=== PATIENT | male | born 1980 | race Caucasian/White ===

== ENCOUNTER 2017-08-16 15:31 | Emergency (ER) | payer OTHER ==
[~2017-08-16] VITALS: Ht 185.4 cm; Wt 125.6 kg
[2017-08-16 15:35] VITALS: BP 126/76
--- NOTE | 2017-08-16 15:45 | NUR ---
Patient to bed 12.
--- NOTE | 2017-08-16 15:50 | NUR ---
37 M BIB SELF FOR THE EVALUATION OF DIABETIC WOUND LOCATED ON SOLE OF RIGHT FOOTX APPROX 2 MONTHS BUT WORSENING THE PAST WK WITH REDNESS, WARMTH, AND PUS; SKIN INTACT; PT DENIES ANY FEVER OR CHILLS; PT DENIES ANY RECENT INJURY TO RIGHT FOOT; CMS INTACT TO BL LOWER EXTREMITITES; AOX4 WITH EVEN AND STEADY GAIT; RR ARE EVEN AND UNLABORED; PATIENT STATES PAIN OF 1/10 "DULL" NON RADIATING PAIN TO RIGHT FOOT AT THIS TIME; VSS; PATIENT POSITIONED FOR COMFORT; BED DOWN. ER MD MADE AWARE OF PT STATUS. ALL NEEDS MET AT THIS TIME. WILL CONTINUE TO MONITOR.
--- NOTE | 2017-08-16 16:04 | NUR ---
Dr. Calvo evaluating patient at bedside.
[2017-08-16 16:33] VITALS: BP 116/74
--- NOTE | 2017-08-16 16:33 | NUR ---
Patient discharged with v/s stable. Written and verbal after care instructions given and explained. Patient alert, oriented and verbalized understanding of instructions. Ambulatory with steady gait. All questions addressed prior to discharge. ID band removed. Patient advised to follow up with PMD. Rx of Bactrim, Keflex, Motrin, and [place] #5 given. Patient educated on indication of medication including possible reaction and side effects. Opportunity to ask questions provided and answered.
== END 2017-08-16 16:33 | disposition home or self-care (01) ==
LOC: MED 15:31
DX: L03.115 Cellulitis of right lower limb (principal); E11.9 Type 2 diabetes mellitus without complications
CPT/HCPCS: 82948; 99283

== ENCOUNTER 2018-03-04 11:43 | Emergency (ER) | payer OTHER ==
[~2018-03-04] VITALS: Ht 185.4 cm; Wt 132.4 kg
[2018-03-04 11:47] VITALS: BP 156/103
--- NOTE | 2018-03-04 11:50 | NUR ---
to er bed 5
[2018-03-04 12:00] VITALS: BP 156/103
--- NOTE | 2018-03-04 12:00 | NUR ---
37/M LEFT EYE PAIN X2 WEEKS. PATIENT WAS SEEN BY OPTOMOLOGIST AND WAS PRESCRIBED EYE DROPS FOR INTRAOCULAR PRESSURE. STARTING YESTERDAY, PATIENT STATES LEFT EYE PAIN WITH REDNESS NOTED. DENIES N/V/D; SKIN IS PINK/WARM/DRY; AAOX4 WITH EVEN AND STEADY GAIT; LUNGS CLEAR BL; HR EVEN AND REGULAR; PT DENIES ANY FEVER, CP, SOB, OR COUGH AT THIS TIME; PATIENT STATES PAIN OF 5/10 AT THIS TIME; HX DM. VSS; PATIENT POSITIONED FOR COMFORT; HOB ELEVATED; BEDRAILS UP X2; BED DOWN. ER MD MADE AWARE OF PT STATUS.
[2018-03-04] MEDS ORDERED: FLUORESCEIN OPTH STRIP 0.6 MG OP ONE (12:05)
[2018-03-04] MEDS ORDERED: TETRACAINE HCL/PF 0.5% OPTH 4 ML BTL OP ONE (12:05)
--- NOTE | 2018-03-04 12:07 | NUR ---
PATIENT SEEN BY DR. SAMAYOA AT BEDSIDE. NEW ORDERS RECEIVED. PER PATIENT, ALREADY RECEIVED THESE TESTS, PATIENT TO SIGNS AGAINST DR. SAMAYOA'S ADVICE HERE AT THE HOSPITAL AND TO GO STRAIGHT BACK TO THE OPTOMOLOGIST SEEING THE PATIENT.
--- NOTE | 2018-03-04 12:14 | NUR ---
Patient does not wish to proceed with medical care recommended by DR. SAMAYOA. Patient given information related to possible complications, up to and including , which could occur as a result of leaving hospital at this time. Patient verbalizes understanding of risks involved leaving against medical advice. Patient has signed AMA form. PRESCRIPTIONS AND RECOMMENDED FACILITY FOR EYE EXAMS GIVEN TO PATIENT WITH EDUCATION TEACHING, VERBALIZED UNDERSTANDING.
== END 2018-03-04 12:28 | disposition left against medical advice (07) ==
LOC: MED 11:43
DX: H20.9 Unspecified iridocyclitis (principal); H57.12 Ocular pain, left eye; E11.9 Type 2 diabetes mellitus without complications
CPT/HCPCS: 99283

== ENCOUNTER 2018-04-16 11:53 | Emergency (ER) | payer OTHER ==
[~2018-04-16] VITALS: Ht 185.4 cm; Wt 131.5 kg
[2018-04-16 12:02] VITALS: BP 120/80
[2018-04-16] MEDS ORDERED: VANCOMYCIN 1,000 MG in DEXTROSE 5% 250 ML IV ONE (12:30)
[2018-04-16] MEDS ORDERED: VANCOMYCIN 1,000 MG VIAL ONE (12:48)
[2018-04-16] MEDS ORDERED: cefTRIAXone 1,000 MG VIAL ONE (12:48)
[2018-04-16 13:12] LABS: BASOPHILS # (AUTO) 0.1 K/uL (0.00-0.22); BASOPHILS % (AUTO) 1.2 % (0.0-2.0); EOSINOPHILS # (AUTO) 0.1 K/uL (0-0.4); EOSINOPHILS % (AUTO) 1.1 % (0.0-4.0); HEMATOCRIT 41.7 % (36-52); HEMOGLOBIN 14.5 g/dL (12.0-18.0); LYMPHOCYTES # (AUTO) 2.4 K/uL (2.0-11.5); LYMPHOCYTES % (AUTO) 20.6 % (20.5-51.1); MEAN CORPUSCULAR HEMOGLOBIN 29 pg (27-31); MEAN CORPUSCULAR HGB CONC 35 g/dL (33-37); MEAN CORPUSCULAR VOLUME 84.9 fL (80-94); MONOCYTES # (AUTO) 0.7 K/uL (0.8-1.0); MONOCYTES % (AUTO) 5.8 % (1.7-9.3); NEUTROPHILS # (AUTO) 8.4 K/uL (1.8-7.7); NEUTROPHILS % (AUTO) 71.3 % (42.2-75.2); PLATELET COUNT (AUTO) 242 K/uL (140-450); RED BLOOD CELL COUNT(AUTO) 4.91 MIL/uL (4.20-6.10); RED CELL DISTRIBUTION WIDTH 12.7 % (11.6-13.7); WHITE BLOOD COUNT (AUTO) 11.8 K/uL (4.8-10.8)
[2018-04-16 13:29] LABS: ALBUMIN 3.9 g/dL (3.4-5.0); ANION GAP 13.9 (8-16); CARBON DIOXIDE 28.4 mmol/L (21-32); CREATININE 0.9 mg/dL (0.7-1.3); POTASSIUM 4.3 mmol/L (3.5-5.1); TOTAL BILIRUBIN 0.8 mg/dL (0.0-1.0)
[2018-04-16 15:09] VITALS: BP 123/75
== END 2018-04-16 15:10 | disposition home or self-care (01) ==
LOC: MED 11:53
DX: E11.621 Type 2 diabetes mellitus with foot ulcer (principal); L97.519 Non-pressure chronic ulcer of other part of right foot with unspecified severity; L03.115 Cellulitis of right lower limb
CPT/HCPCS: 36415; 73630; 80053; 83605; 85025; 85651; 86140; 87040; 96365; 96368; 99285; J0696; J3370; J7030; Q0092; 99284

== ENCOUNTER 2022-01-19 12:04 | Inpatient (IN) | payer OTHER ==
[~2022-01-19] VITALS: Ht 185.4 cm; Wt 143.8 kg
--- NOTE | 2022-01-19 14:00 | NUR ---
RECEIVED PATIENT TRANSFER FROM [facility] FOR CONTINUITY OF CARE. CC SWOLLEN ON LEFT SECOND TOE X2 DAYS. DX OSTEOMYELITIS. PATIENT IS A/A/O X4. RESPIRATORY EVEN AND UNLABORED, ON ROOM AIR, NO SIGN OF DISTRESS NOTED. LUNG SOUND CLEAR TO AUSCULTATE. S1 AND S2 NOTED, DENIES ANY CHEST PAIN. ABDOMEN ROUNDED, SOFT, NON DISTENDED. BOWEL SOUNDS ACTIVE TO ALL QUADRANTS. SKIN WARM, DRY, NON DIAPHORETIC. LEFT SECOND TOES SWOLLEN, REDNESS, DISCOLORATION. DM ULCER WOUND NOTED ON LEFT FOOT. IV ON LEFT AC 20G, INTACT AND PATENT, SALINE LOCK. MRSA COLLECTED. ORIENT TO ROOM AND UNIT ROUTINE. PLAN OF CARE DISCUSSED, PATIENT VERBALIZED UNDERSTANDING. CALL LIGHT WITHIN REACH. WILL CONTINUE TO MONITOR.
[2022-01-19 14:02] VITALS: BP 144/82
[2022-01-19] MEDS ORDERED: VANCOMYCIN PER PHARMACY MC PRN (14:05)
[2022-01-19] MEDS ORDERED: POTASSIUM CHLORIDE 10 MEQ TABER PO PRN (14:05)
[2022-01-19] MEDS ORDERED: ONDANSETRON 4 MG/2 ML VIAL IVP PRN ×2 (14:05→21:35)
[2022-01-19] MEDS ORDERED: ACETAMINOPHEN 325 MG TAB PO PRN (14:05)
[2022-01-19] MEDS ORDERED: MAGNESIUM OXIDE 400 MG TAB PO PRN (14:05)
[2022-01-19] MEDS ORDERED: KCL 20 MEQ/WATER INJ PREMIX 200 ML IV PRN (14:05)
[2022-01-19] MEDS ORDERED: MAG SULF 2000 MG/WATER PREMIX 50 ML IV PRN (14:05)
[2022-01-19] MEDS ORDERED: HYDROcodone/APAP 5/325 MG 1 TAB TAB PO PRN (14:05)
[2022-01-19] MEDS ORDERED: DEXTROSE 50% 50 ML SYR IVP PRN (14:10)
[2022-01-19] MEDS ORDERED: MORPHINE SULFATE 2 MG/ML SYR IVP PRN (14:35)
[2022-01-19 15:28] LABS: BASOPHILS % (AUTO) 0.5 % (0.0-2.0); EOSINOPHILS # (AUTO) 0.1 K/uL (0-0.4); EOSINOPHILS % (AUTO) 1.2 % (0.0-4.0); HEMATOCRIT 40.2 % (36-52); HEMOGLOBIN 13.7 g/dL (12.0-18.0); LYMPHOCYTES # (AUTO) 1.2 K/uL (2.0-11.5); LYMPHOCYTES % (AUTO) 15.3 % (20.5-51.1); MEAN CORPUSCULAR HEMOGLOBIN 29 pg (27-31); MEAN CORPUSCULAR HGB CONC 34 g/dL (33-37); MEAN CORPUSCULAR VOLUME 86.6 fL (80-94); MONOCYTES # (AUTO) 0.5 K/uL (0.8-1.0); MONOCYTES % (AUTO) 5.6 % (1.7-9.3); NEUTROPHILS # (AUTO) 6.2 K/uL (1.8-7.7); NEUTROPHILS % (AUTO) 77.4 % (42.2-75.2); PLATELET COUNT (AUTO) 232 K/uL (140-450); RED BLOOD CELL COUNT(AUTO) 4.64 MIL/uL (4.20-6.10); RED CELL DISTRIBUTION WIDTH 12.8 % (11.6-13.7); WHITE BLOOD COUNT (AUTO) 8.1 K/uL (4.8-10.8)
[2022-01-19 15:29] LABS: ANION GAP 13.7 (8-16); CARBON DIOXIDE 27.3 mmol/L (21-32); CREATININE 0.8 mg/dL (0.6-1.3)
[2022-01-19] MEDS ORDERED: NACL 0.9% 1,000 ML IV SCH (15:40)
[2022-01-19] MEDS: INSULIN LISPRO SLIDING SCALE 100 UNITS/ML VIAL SUBQ PRN (16:34)
[2022-01-19] MEDS: BLOOD GLUCOSE MONITORING 1 DEV DEV FS SCH ×2 (16:34→22:56)
--- NOTE | 2022-01-19 16:34 | NUR ---
BS CHECK 285, 6 UNITS OF INSULIN GIVEN TO COVER. PATIENT TOLERATED WELL. NO SIGN OF DISTRESS NOTED. CALL LIGHT WITHIN REACH. WILL CONTINUE TO MONITOR.
[2022-01-19] MEDS: NACL 0.9% IV SCH (17:02)
[2022-01-19] MEDS: VANCOMYCIN IV SCH (17:02)
--- NOTE | 2022-01-19 18:45 | NUR ---
DR TESFAYE AT BEDSIDE TO EXPLAIN THE BENEFIT AND RISK REGARDING THE SURGERY. PATIENT VERBALIZED UNDERSTANDING. PATIENT SIGNED THE CONSENT, BEDSIDE NURSE SIGNED WITNESS.
--- NOTE | 2022-01-19 19:16 | NUR ---
ENDORSED PATIENT TO WELL SURVEYING ENGINEER NURSE FOR CONTINUITY OF CARE. PATIENT IS STABLE.
--- NOTE | 2022-01-19 19:30 | NUR ---
RECEIVED BEDSIDE REPORT FROM DAY SHIFT RN FOR CONTINUITY OF CARE. PT IS AWAKE. PT IS NOT IN ANY DISTRESS. BREATHING RHYTHMIC AND UNLABORED. COMMUNICATION BOARD UPDATED. IVF RUNNING PER MD ORDER. CALL LIGHT WITHIN REACH. ALL SAFETY MEASURES TAKEN. WILL CONTINUE TO MONITOR THE PT.
[2022-01-19 20:00] VITALS: BP 129/75
--- NOTE | 2022-01-19 20:00 | NUR ---
PT IS BACK FROM SURGERY. PT IS DOING WELL WITH NO COMPLAINS. DRESSING ON LEFT FOOT. DRY AND INTACT. PT IS NOT IN ANY PAIN. NO COMPLAINS. ALL SAFETY MEASURES TAKEN. WILL CONTINUE TO MONITOR THE PT. Addendum: 01/19/22 at 2300 by Mark Arias RN PT CAME BACK FROM SURGERY AT 2200.
[2022-01-19] MEDS ORDERED: fentaNYL citrate 0.05 MG/ML VIAL ONE (20:25)
[2022-01-19] MEDS ORDERED: SEVOFLURANE 250 ML BTL INH ONE (20:25)
[2022-01-19] MEDS ORDERED: PROPOFOL 200 MG/20 ML VIAL IV ONE (20:25)
[2022-01-19] MEDS ORDERED: BUPIVACAINE-MPF 0.25% 30 ML VIAL INJ ONE (20:31)
[2022-01-19] MEDS ORDERED: LIDOCAINE 1% 500 MG/50 ML VIAL ONE (20:31)
[2022-01-19] MEDS ORDERED: DEXAMETHASONE 4 MG/ML VIAL ONE (20:59)
[2022-01-19] MEDS ORDERED: ONDANSETRON 4 MG/2 ML VIAL ONE (20:59)
[2022-01-19] MEDS ORDERED: MEPERIDINE 50 MG/ML SYR ONE (21:00)
--- NOTE | 2022-01-19 21:00 | NUR ---
PT LEFT TO SURGERY FOR LEFT FOOT 2ND DIGIT PARTIAL AMPUTATION. PT IS STABLE.
[2022-01-19] MEDS ORDERED: diphenhydrAMINE 50 MG/ML VIAL IVP PRN (21:35)
[2022-01-19] MEDS: NACL 0.9% 1,000 ML IV SCH (21:35)
[2022-01-19] MEDS ORDERED: HYDROmorphone 1 MG/ML AMP IVP PRN (21:35)
[2022-01-19] MEDS ORDERED: MEPERIDINE 25 MG/ML SYR IVP PRN (21:35)
[2022-01-19] MEDS ORDERED: BLOOD GLUCOSE MONITORING 1 DEV DEV FS SCH (21:35)
[2022-01-19] MEDS: CEFEPIME 1,000 MG in DEXTROSE 5% 50 ML IV SCH (22:12)
[2022-01-20] MEDS: NACL 0.9% IV SCH ×2 (00:12→09:36)
[2022-01-20] MEDS: VANCOMYCIN IV SCH ×2 (00:12→09:36)
--- NOTE | 2022-01-20 00:15 | NUR ---
ALL DUE MEDS GIVEN. NO ADVERSE REACTION NOTED. WILL CONTINUE TO MONITOR THE PT.
--- NOTE | 2022-01-20 02:20 | NUR ---
PT IS AWAKE IN BED. PT IS NOT IN ANY DISTRESS. BREATHING RHYTHMIC AND UNLABORED. IVF RUNNING PER MD ORDER. CALL LIGHT WITHIN REACH. ALL SAFETY MEASURES TAKEN. WILL CONTINUE TO MONITOR THE PT.
[2022-01-20 04:00] VITALS: BP 148/91
--- NOTE | 2022-01-20 05:43 | NUR ---
PT IS SLEEPING IN BED COMFORTABLY. PT IS NOT IN ANY DISTRESS. BREATHING RHYTHMIC AND UNLABORED. IVF RUNNING PER MD ORDER. CALL LIGHT WITHIN REACH. ALL SAFETY MEASURES TAKEN. WILL CONTINUE TO MONITOR THE PT.
[2022-01-20] MEDS: NACL 0.9% 1,000 ML IV SCH (05:55)
[2022-01-20] MEDS: INSULIN LISPRO SLIDING SCALE 100 UNITS/ML VIAL SUBQ PRN ×2 (06:31→11:57)
[2022-01-20] MEDS: BLOOD GLUCOSE MONITORING 1 DEV DEV FS SCH ×2 (06:36→11:54)
[2022-01-20 06:48] LABS: BASOPHILS % (AUTO) 0.2 % (0.0-2.0); EOSINOPHILS % (AUTO) 0.1 % (0.0-4.0); HEMATOCRIT 39.7 % (36-52); HEMOGLOBIN 13.4 g/dL (12.0-18.0); LYMPHOCYTES # (AUTO) 0.5 K/uL (2.0-11.5); LYMPHOCYTES % (AUTO) 6.5 % (20.5-51.1); MEAN CORPUSCULAR HEMOGLOBIN 30 pg (27-31); MEAN CORPUSCULAR HGB CONC 34 g/dL (33-37); MEAN CORPUSCULAR VOLUME 87.9 fL (80-94); MONOCYTES # (AUTO) 0.2 K/uL (0.8-1.0); MONOCYTES % (AUTO) 2.4 % (1.7-9.3); NEUTROPHILS # (AUTO) 7.5 K/uL (1.8-7.7); NEUTROPHILS % (AUTO) 90.8 % (42.2-75.2); PLATELET COUNT (AUTO) 225 K/uL (140-450); RED BLOOD CELL COUNT(AUTO) 4.52 MIL/uL (4.20-6.10); RED CELL DISTRIBUTION WIDTH 13.2 % (11.6-13.7); WHITE BLOOD COUNT (AUTO) 8.3 K/uL (4.8-10.8)
--- NOTE | 2022-01-20 07:17 | NUR ---
ENDORSED PT TO DAY SHIFT RN FOR CONTINUITY OF CARE. PT IS STABLE.
[2022-01-20 07:18] LABS: ALBUMIN 3.4 g/dL (3.4-5.0); ANION GAP 18.4 (8-16); CARBON DIOXIDE 23.1 mmol/L (21-32); POTASSIUM 4.5 mmol/L (3.5-5.1); TOTAL BILIRUBIN 0.4 mg/dL (0.0-1.0)
--- NOTE | 2022-01-20 07:36 | NUR ---
REPORT RECEIVED FROM ENROLLMENT SPECIALIST RN. PT IN STABLE CONDITION.
[2022-01-20 08:00] VITALS: BP 136/95
--- NOTE | 2022-01-20 08:13 | NUR ---
PATIENT HAS BEEN SCREENED AND CATEGORIZED HIGH NUTRITION RISK. PATIENT WILL BE SEEN WITHIN 1-2 DAYS OF ADMISSION. / RECEIVED REFERRAL FOR UNHEALED WOUNDS LYDIA [address]
--- NOTE | 2022-01-20 08:19 | NUR ---
WOUND CONSULT NOT DONE TO LEFT FOOT. PT. SEEN AND TREATED BY DR. TESFAYE.
[2022-01-20] MEDS: CEFEPIME 1,000 MG in DEXTROSE 5% 50 ML IV SCH (08:29)
[2022-01-20] MEDS ORDERED: INSULIN LANTUS 100 UNITS/ML 10 ML VIAL SUBQ SCH (09:00)
[2022-01-20] MEDS ORDERED: METF-1022 PO (11:13)
[2022-01-20] MEDS ORDERED: ACET-1182 PO (11:13)
[2022-01-20] MEDS ORDERED: LINE600T10 PO (11:25)
[2022-01-20] MEDS ORDERED: LEVO750T51 PO (11:25)
[2022-01-20 12:00] VITALS: BP 124/92
--- NOTE | 2022-01-20 12:32 | NUR ---
DC PLANNING: THE PATIENT ADMITTED WITH C/O FOOT PAIN, H/O DM WITH PRIOR AMPUTATION OF THE THIRD LEFT TOE. TAKEN TO OR BY DR TESFAYE FOR PARTIAL AMPUTATION OF THE LEFT SECOND TOE. CM MET WITH THE PATIENT AT BEDSIDE, HIS CURRENT ADDRESS IS [facility], [id number], NEW PHONE NUMBER [phone]. THE PATIENT LIVES IN A TOWNHOUSE WITH THREE LEVELS WITH HIS AND DAUGHTER. NO DME OF H/O HOME HEALTH. CM DISCUSSED DIABETIC MANAGEMENT AT LENGTH WITH THE PATIENT AND GAVE RESOURCE OF THE [employer] WEBSITE. HOME HEALTH ORDERED FOR DIABETIC COMPLIANCE AND WOUND CARE WHICH WILL START AFTER THE PATIENT SEES DR TESFAYE. NURSING SCHEDULED A F/U APPOINTMENT FOR THE PATIENT WITH DR TESFAYE AND A PRESCRIPTION WAS GIVEN FOR GLUCOMETER AND SUPPLIES THE PATIENT DOESN'T HAVE ONE. HE HAS BEEN DIABETIC FOR 10 YEARS AND HIS MOTHER FROM COMPLICATIONS OF DM. PATIENT ACCEPTED ON SERVICE WITH [facility], PHONE NUMBER [phone]. PAULO AT [facility] NOTIFIED OF ACCEPTANCE AND WILL GIVE AUTHORIZATION TO THEM. [facility] WILL FOLLOW. Addendum: 01/20/22 at 1240 by Evelin James CM Amended: Links added.
== END 2022-01-20 13:15 | disposition home health service (06) | DRG 314 ==
LOC: MTU 13:58
PROVIDERS: ADMIT Internal Medicine; ATTEND Internal Medicine
PROC: 0JBR0ZZ Excision of Left Foot Subcutaneous Tissue and Fascia, Open Approach (ICD-10-PCS; 2022-01-19)
PROC: 0QBR0ZX Excision of Left Toe Phalanx, Open Approach, Diagnostic (ICD-10-PCS; 2022-01-19)
PROC: 0Y6S0Z3 Detachment at Left 2nd Toe, Low, Open Approach (ICD-10-PCS; principal; 2022-01-19 20:00)
DX: E11.69 Type 2 diabetes mellitus with other specified complication (principal); L03.116 Cellulitis of left lower limb; M86.8X7 Other osteomyelitis, ankle and foot; L97.526 Non-pressure chronic ulcer of other part of left foot with bone involvement without evidence of necrosis; L97.522 Non-pressure chronic ulcer of other part of left foot with fat layer exposed; E11.42 Type 2 diabetes mellitus with diabetic polyneuropathy; E11.621 Type 2 diabetes mellitus with foot ulcer; E66.01 Morbid (severe) obesity due to excess calories; Z89.421 Acquired absence of other right toe(s); Z68.41 Body mass index [BMI] 40.0-44.9, adult; Z89.422 Acquired absence of other left toe(s)
CPT/HCPCS: 36415; 71045; 73630; 80048; 80053; 82948; 83036; 83735; 85025; 87070; 87075; 87081; 87205; 93005; J0692; J1100; J1815; J2001; J2175; J2405; J2704; J3010; J3370; J3490; J7030; J7060

== ENCOUNTER 2022-07-08 23:33 | Emergency (ER) | payer OTHER ==
[~2022-07-08] VITALS: Ht 185.4 cm; Wt 150.1 kg
[~2022-07-08 23:33] MED LIST: ACET-1182 PO; LEVO750T75 PO; LINE600T10 PO; METF-1253 PO
[2022-07-08 23:44] VITALS: BP 147/88
[2022-07-09] MEDS ORDERED: NACL 0.9% 2,500 ML IV ONE (02:45)
[2022-07-09] MEDS ORDERED: PIPERACILLIN/TAZOBACTAM 3.375 GM in DEXTROSE 5% 50 ML IV ONE (02:45)
[2022-07-09] MEDS ORDERED: VANCOMYCIN 1,000 MG in DEXTROSE 5% 250 ML IV ONE (02:45)
[2022-07-09 03:23] LABS: BASOPHILS # (AUTO) 0.1 K/uL (0.00-0.22); BASOPHILS % (AUTO) 0.8 % (0.0-2.0); EOSINOPHILS # (AUTO) 0.2 K/uL (0-0.4); EOSINOPHILS % (AUTO) 2.4 % (0.0-4.0); HEMATOCRIT 40.1 % (36-52); HEMOGLOBIN 13.4 g/dL (12.0-18.0); LYMPHOCYTES # (AUTO) 1.8 K/uL (2.0-11.5); LYMPHOCYTES % (AUTO) 17.7 % (20.5-51.1); MEAN CORPUSCULAR HEMOGLOBIN 29 pg (27-31); MEAN CORPUSCULAR HGB CONC 33 g/dL (33-37); MEAN CORPUSCULAR VOLUME 87.1 fL (80-94); MONOCYTES # (AUTO) 0.6 K/uL (0.8-1.0); MONOCYTES % (AUTO) 6.1 % (1.7-9.3); NEUTROPHILS # (AUTO) 7.3 K/uL (1.8-7.7); PLATELET COUNT (AUTO) 237 K/uL (140-450); RED CELL DISTRIBUTION WIDTH 13.8 % (11.6-13.7)
--- NOTE | 2022-07-09 03:25 | NUR ---
RECEIVED IN BED 7 WITH RT FOOT PAIN. PT REPORTS BLISTER TO RT FOOT WITH H/O DIABETES MEDHX- DM NKA
[2022-07-09] MEDS ORDERED: VANCOMYCIN 1,000 MG VIAL ONE (03:37)
[2022-07-09] MEDS ORDERED: PIPERACILLIN/TAZOBACTAM 3.375 GM VIAL IV ONE (03:38)
[2022-07-09 03:39] LABS: ALBUMIN 3.7 g/dL (3.4-5.0); ANION GAP 12.2 (8-16); CARBON DIOXIDE 28.7 mmol/L (21-32); POTASSIUM 3.9 mmol/L (3.5-5.1); TOTAL BILIRUBIN 0.4 mg/dL (0.0-1.0)
--- NOTE | 2022-07-09 05:00 | NUR ---
RIGHT FOOT DRESSED, BACITRACIN WAS APPLIED
[2022-07-09] MEDS ORDERED: CEPH-588 PO (05:22)
== END 2022-07-09 05:30 | disposition home or self-care (01) ==
LOC: MED 23:33
DX: S90.822A Blister (nonthermal), left foot, initial encounter (principal); I10 Essential (primary) hypertension; E11.9 Type 2 diabetes mellitus without complications; Z79.4 Long term (current) use of insulin; Z79.899 Other long term (current) drug therapy; Z98.890 Other specified postprocedural states; X58.XXXA Exposure to other specified factors, initial encounter; Y93.89 Activity, other specified; Y92.89 Other specified places as the place of occurrence of the external cause; Y99.8 Other external cause status
CPT/HCPCS: 36415; 73630; 80053; 82948; 83605; 85025; 87040; 96365; 96367; 99284; J2543; J3370; J7030

== ENCOUNTER 2022-09-27 09:01 | Emergency (ER) | payer OTHER ==
[~2022-09-27] VITALS: Ht 185.4 cm; Wt 150.1 kg
[~2022-09-27 09:01] MED LIST changes: +CEPH-588 PO
[2022-09-27 09:19] VITALS: BP 139/89
[2022-09-27 10:45] VITALS: BP 139/89
--- NOTE | 2022-09-27 10:45 | NUR ---
PATIENT ELOPED FROM FACILITY. DISCHARGE INSTRUCTIONS NOT GIVEN TO PATIENT. DR. FRIAS NOTIFIED.
== END 2022-09-27 10:45 | disposition left against medical advice (07) ==
LOC: MED 09:01
DX: E11.621 Type 2 diabetes mellitus with foot ulcer (principal)
CPT/HCPCS: 73630; 99283

== ENCOUNTER 2022-10-10 13:15 | Emergency (ER) | payer OTHER ==
[~2022-10-10] VITALS: Ht 182.9 cm; Wt 149.7 kg
[2022-10-10 13:18] VITALS: BP 149/100
--- NOTE | 2022-10-10 13:50 | NUR ---
42YO MALE PT C/O THROBBING 5/10 R EYE PAIN X5DAYS. STATES SUDDEN ONSET ALONG WITH CLOUDY VISION. EYE PRESENTS RED, NO PUS OR DRAINAGE NOTED. PERRLA . STATES APPLYING OTC EYE DROPS WHICH WORSENED SYMPTOMS. NOTES S/S 5 YEARS AGO THAT SELF RELIEVED. PT AAOX4, LIGHTS DIMMED PER COMFORT. HX:DIABETES, HTN NKA
--- NOTE | 2022-10-10 13:57 | NUR ---
DAMION CALLAWAY AT BEDSIDE FOR EVALUATION
[2022-10-10] MEDS ORDERED: TETRACAINE HCL/PF 0.5% OPTH 4 ML BTL OP ONE (14:05)
[2022-10-10] MEDS ORDERED: FLUORESCEIN OPTH STRIP 1 MG OP ONE (14:05)
[2022-10-10] MEDS ORDERED: IBUP-2213 PO (14:38)
[2022-10-10] MEDS ORDERED: ERYT5OIN51 OP (14:38)
--- NOTE | 2022-10-10 14:50 | NUR ---
Patient discharged with v/s stable. Written and verbal after care instructions FOR BACTERIAL CONJUCTIVITIS given and explained. Patient alert, oriented and verbalized understanding of instructions. Ambulatory with steady gait. All questions addressed prior to discharge. ID band removed. Patient advised to follow up with PMD. Rx of IBUPROFEN AND ERTHROMYCIN given. Opportunity to ask questions provided and answered.
--- NOTE | 2022-10-10 15:08 | NUR ---
The patient's care was reviewed and supervised by [facility], RN.
== END 2022-10-10 14:50 | disposition home or self-care (01) ==
LOC: MED 13:15
DX: H10.9 Unspecified conjunctivitis (principal); B96.89 Other specified bacterial agents as the cause of diseases classified elsewhere; E11.9 Type 2 diabetes mellitus without complications; I10 Essential (primary) hypertension; Z79.899 Other long term (current) drug therapy; Z79.84 Long term (current) use of oral hypoglycemic drugs
CPT/HCPCS: 99283

== ENCOUNTER 2022-11-07 11:06 | Emergency (ER) | payer OTHER ==
[~2022-11-07] VITALS: Ht 185.4 cm; Wt 150.1 kg
[~2022-11-07 11:06] MED LIST changes: +ERYT5OIN51 OP; +IBUP-2213 PO
[2022-11-07 11:18] VITALS: BP 124/81
--- NOTE | 2022-11-07 11:30 | NUR ---
42/M PRESENTS TO ED WITH C/O LEFT EAR PAIN X3 WEEKS, STATES HE WAS SEEN BY HIS PCP ON SUNDAY AND GIVEN RX OF ABX WITH NO RELIEF. REPORTS EPISODES OF DIZZINESS AND ISSUES WITH BALANCE, DENIES FEVERS, CHILLS, DENIES DISHCHARGE OF EARS.
[2022-11-07] MEDS ORDERED: SUD30 PO (12:01)
[2022-11-07] MEDS ORDERED: MECL-303 PO (12:01)
[2022-11-07 12:10] VITALS: BP 112/62
--- NOTE | 2022-11-07 12:10 | NUR ---
Patient discharged with v/s stable. Written and verbal after care instructions ABOUT DIZZINESS given and explained. Patient alert, oriented and verbalized understanding of instructions. Ambulatory with steady gait. All questions addressed prior to discharge. ID band removed. Patient advised to follow up with PMD. Rx of ANTIVERT AND SUDAFED given. Patient educated on indication of medication including possible reaction and side effects. Opportunity to ask questions provided and answered.
== END 2022-11-07 12:10 | disposition home or self-care (01) ==
LOC: MED 11:06
DX: H65.93 Unspecified nonsuppurative otitis media, bilateral (principal); R42 Dizziness and giddiness; R11.2 Nausea with vomiting, unspecified; E11.9 Type 2 diabetes mellitus without complications; I10 Essential (primary) hypertension; Z79.899 Other long term (current) drug therapy; Z79.84 Long term (current) use of oral hypoglycemic drugs
CPT/HCPCS: 99282

== ENCOUNTER 2022-11-20 18:08 | Emergency (ER) | payer OTHER ==
[~2022-11-20] VITALS: Ht 185.4 cm; Wt 149.7 kg
[~2022-11-20 18:08] MED LIST changes: +MECL-303 PO; +SUD30 PO
[2022-11-20 18:22] VITALS: BP 124/70
--- NOTE | 2022-11-20 20:18 | NUR ---
PT CALLED BY DAMION STANTON WITH NO ANSWER.
--- NOTE | 2022-11-20 20:38 | NUR ---
PT CALLED BY DAMION STANTON WITH NO ANSWER.
--- NOTE | 2022-11-20 20:50 | NUR ---
PT CALLED BY DAMION STANTON WITH NO ANSWER. PT LWBS
== END 2022-11-20 20:50 | disposition left against medical advice (07) ==
LOC: MED 18:08
DX: R42 Dizziness and giddiness (principal); Z53.21 Procedure and treatment not carried out due to patient leaving prior to being seen by health care provider

== ENCOUNTER 2023-01-17 17:21 | Inpatient (IN) | payer OTHER ==
[~2023-01-17] VITALS: Ht 182.9 cm; Wt 151.0 kg
[2023-01-17] MEDS: NACL 0.9% 1,000 ML IV SCH (00:34)
[2023-01-17 17:34] VITALS: BP 142/92
--- NOTE | 2023-01-17 17:45 | NUR ---
PT AMB TO BED 6
[2023-01-17] MEDS ORDERED: NACL 0.9% 1,000 ML IV SCH (17:55)
--- NOTE | 2023-01-17 17:55 | NUR ---
42YO MALE PT C/O STEVIE DIABETIC FOOT ULCERS. REPORTS BEING SENT BY PCP D/T NEW ULCER ON R FOOT X4DAYS. STEVIE ULCERS NOTED. STATES L FOOT INITIAL ONSET [id number] AND CURRENTLY ON ANTIBIOTICS. DENIES PAIN, N/V/D, FEVER OR CHILLS. 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 HX: DIABETES, HTN, HLD NKA
--- NOTE | 2023-01-17 17:57 | NUR ---
XRAY AT BEDSIDE
[2023-01-17] MEDS ORDERED: VANCOMYCIN 1,000 MG in DEXTROSE 5% 250 ML IV ONE (18:10)
[2023-01-17] MEDS ORDERED: PIPERACILLIN/TAZOBACTAM 3.375 GM in DEXTROSE 5% 50 ML IV ONE (18:10)
[2023-01-17 18:16] LABS: BASOPHILS # (AUTO) 0.1 K/uL (0.00-0.22); EOSINOPHILS # (AUTO) 0.5 K/uL (0-0.4); EOSINOPHILS % (AUTO) 4.9 % (0.0-4.0); HEMATOCRIT 38.7 % (36-52); HEMOGLOBIN 12.8 g/dL (12.0-18.0); MEAN CORPUSCULAR HEMOGLOBIN 29 pg (27-31); MEAN CORPUSCULAR HGB CONC 33 g/dL (33-37); MEAN CORPUSCULAR VOLUME 86.6 fL (80-94); MONOCYTES # (AUTO) 0.7 K/uL (0.8-1.0); MONOCYTES % (AUTO) 7.7 % (1.7-9.3); NEUTROPHILS % (AUTO) 64.4 % (42.2-75.2); PLATELET COUNT (AUTO) 399 K/uL (140-450); RED BLOOD CELL COUNT(AUTO) 4.47 MIL/uL (4.20-6.10); RED CELL DISTRIBUTION WIDTH 13.3 % (11.6-13.7); WHITE BLOOD COUNT (AUTO) 9.2 K/uL (4.8-10.8)
--- NOTE | 2023-01-17 18:30 | NUR ---
aerobic cultures x2 collected and walked to lab.
[2023-01-17 18:32] LABS: ALBUMIN 3.5 g/dL (3.4-5.0); CARBON DIOXIDE 31.9 mmol/L (21-32); CREATININE 1.1 mg/dL (0.6-1.3); POTASSIUM 3.9 mmol/L (3.5-5.1); TOTAL BILIRUBIN 0.2 mg/dL (0.0-1.0)
[2023-01-17] MEDS ORDERED: cefTRIAXone 1,000 MG VIAL ONE (18:34)
[2023-01-17] MEDS ORDERED: PIPERACILLIN/TAZOBACTAM 3.375 GM VIAL IV ONE (18:37)
[2023-01-17] MEDS ORDERED: METF-337 PO (19:06)
[2023-01-17] MEDS ORDERED: LISI40TA8 PO (19:06)
[2023-01-17] MEDS ORDERED: ATOR10TA51 PO (19:06)
[2023-01-17] MEDS ORDERED: GLIP10TA12 PO (19:06)
[2023-01-17] MEDS ORDERED: ERGO-30 PO (19:06)
--- NOTE | 2023-01-17 19:32 | NUR ---
REPORT GIVEN TO SANG RN. TRANSFER OF CARE AT THIS TIME
[2023-01-17] MEDS ORDERED: VANCOMYCIN 1,000 MG VIAL ONE ×2 (19:39→19:51)
--- NOTE | 2023-01-17 20:40 | NUR ---
Provided [facility] as request.
[2023-01-17] MEDS ORDERED: LORazepam 2 MG/ML VIAL IVP PRN (22:15)
[2023-01-17] MEDS ORDERED: ONDANSETRON 4 MG/2 ML VIAL IVP PRN (22:15)
[2023-01-17] MEDS ORDERED: MORPHINE SULFATE 2 MG/ML SYR IVP PRN (22:15)
[2023-01-17] MEDS ORDERED: ACETAMINOPHEN 325 MG TAB PO PRN (22:15)
--- NOTE | 2023-01-17 22:34 | NUR ---
Provided pillow and blankets as request.
--- NOTE | 2023-01-17 23:28 | NUR ---
Pt report given to Tala. Transfer of care at this time.
--- NOTE | 2023-01-17 23:28 | NUR ---
Patient will be admitted to care of Dr. Bui. Admited to telemetry. Will go to room. Belongings list completed. Report to
[2023-01-18 00:12] VITALS: BP 141/85
--- NOTE | 2023-01-18 00:12 | NUR ---
RECEIVED PT A NEW ADMIT FROM ER. PATIENT IS AWAKE, ALERT AND ORIENTED X 4, ABLE TO AMBULATE WITH STEADY GAIT. DENIES PAIN. NO ACUTER RESPIRATORY DISTRESS. DIABETIC WOUND NOTED ON BILATERAL FEET, PICTURES TAKEN AND PLACED IN THE CHART. SKIN WARM AND DRY TO TOUCH. BED IN THE LOWEST AND LOCKED POSITION FOR SAFETY, CALL LIGHT GIVEN TO PT, INSTRUCTION ON USE PROVIDED, ENCOURAGED TO CALL IF ASSISTANCE IS NEEDED, PT VERBALLY AGREED.
[2023-01-18 04:00] VITALS: BP 138/80
[2023-01-18] MEDS ORDERED: PIPERACILLIN/TAZOBACTAM 3.375 GM VIAL IV ONE (04:26)
[2023-01-18] MEDS ORDERED: PIPERACILLIN/TAZOBACTAM 3.375 GM in DEXTROSE 5% 50 ML IV SCH (05:00)
[2023-01-18 06:15] LABS: BASOPHILS # (AUTO) 0.1 K/uL (0.00-0.22); BASOPHILS % (AUTO) 0.8 % (0.0-2.0); EOSINOPHILS # (AUTO) 0.4 K/uL (0-0.4); EOSINOPHILS % (AUTO) 5.6 % (0.0-4.0); HEMATOCRIT 35.1 % (36-52); HEMOGLOBIN 11.7 g/dL (12.0-18.0); LYMPHOCYTES # (AUTO) 1.7 K/uL (2.0-11.5); LYMPHOCYTES % (AUTO) 21.3 % (20.5-51.1); MEAN CORPUSCULAR HEMOGLOBIN 29 pg (27-31); MEAN CORPUSCULAR HGB CONC 33 g/dL (33-37); MONOCYTES # (AUTO) 0.7 K/uL (0.8-1.0); MONOCYTES % (AUTO) 9.3 % (1.7-9.3); NEUTROPHILS # (AUTO) 4.9 K/uL (1.8-7.7); PLATELET COUNT (AUTO) 345 K/uL (140-450); RED BLOOD CELL COUNT(AUTO) 4.03 MIL/uL (4.20-6.10); RED CELL DISTRIBUTION WIDTH 13.2 % (11.6-13.7); WHITE BLOOD COUNT (AUTO) 7.7 K/uL (4.8-10.8)
--- NOTE | 2023-01-18 06:16 | NUR ---
PATIENT IS ASLEEP. NO DISTRESS NOTED. ALL NEEDS ATTENDED TO. SAFETY PRECAUTIONS MAINTAINED DURING THE SHIFT, CALL LIGHT REMAINS WITHIN REACH.
[2023-01-18 06:57] LABS: ALBUMIN 2.9 g/dL (3.4-5.0); ANION GAP 9.6 (8-16); CARBON DIOXIDE 31.4 mmol/L (21-32); MAGNESIUM 1.6 mg/dL (1.8-2.4); TOTAL BILIRUBIN 0.2 mg/dL (0.0-1.0)
--- NOTE | 2023-01-18 07:16 | NUR ---
ENDORSED CARE TO AM NURSE FOR CONTINUITY OF CARE. SHOWED DR. TESFAYE'S ORDER, TO FOLLOW UP WITH PRIMARY MD. PT IS ASLEEP. NOT IN ANY FORM OF DISTRESS.
[2023-01-18 08:00] VITALS: BP_SYST 133; BP_SYST 143; BP_DIAS 92; BP_DIAS 93
--- NOTE | 2023-01-18 08:59 | NUR ---
RECEIVED IN NO ACUTE DISTRESS ALL SAFETY MEASURES IN PLACE ALERT AND ORIENTEDX3
--- NOTE | 2023-01-18 09:12 | NUR ---
PATIENT HAS BEEN SCREENED AND CATEGORIZED HIGH NUTRITION RISK. PATIENT WILL BE SEEN WITHIN 1-2 DAYS OF ADMISSION. 01/18/ [facility] REFERRAL RECEIVED FOR "UNHEALED WOUND" ON 01/18/23. REVIEWED BY LYDIA HODGES RD
[2023-01-18] MEDS: NACL 0.9% 1,000 ML IV SCH ×2 (09:48→18:00)
[2023-01-18] MEDS: PIPERACILLIN/TAZOBACTAM 3.375 GM in DEXTROSE 5% 50 ML IV SCH ×2 (13:00→20:56)
[2023-01-18] MEDS ORDERED: DEXTROSE 50% 50 ML SYR IVP PRN (13:45)
--- NOTE | 2023-01-18 13:49 | NUR ---
DC PLANNING ASSESSMENT COMPLETE PLEASE REFER TO ASSESSMENT FOR ADDITIONAL DETAILS MET WITH PT AT BEDSIDE TO COMPLETE ASSESSMENT. PT IS A 42 YR OLD MALE ADMITTED TO [facility] FROM HOME WITH DX OF DM FOOT ULCER. PT HAS PAST MEDICAL HX OF DIABETES. PT REPORTS BEING INDEPENDENT IN ALL ACTIVITIES AND DENIES USE OF DME. PT RESIDES IN A THREE-STORY TOWNHOUSE WITH HIS PARTNER AND YOUNG DAUGHTER, AT THE ADDRESS LISTED ON FILE. PT PROVIDED SW WITH PERMISSION TO SCHEDULE FOLLOW UP APPT WITH PCP ONCE CLEARED FOR DC. PT REPORTS DC PLAN IS TO RETURN HOME WITH HIS PARTNER PROVIDING TRANSPORTATION, WHEN MEDICALLY STABLE Addendum: 01/18/23 at 1349 by Kaylee THOMAS Amended: Links added.
[2023-01-18] MEDS: BLOOD GLUCOSE MONITORING 1 DEV DEV FS SCH ×2 (16:30→21:58)
--- NOTE | 2023-01-18 17:11 | NUR ---
01/18/23 RD INITIAL ASSESSMENT COMPLETED PLEASE REFER TO NUTRITION ASSESSMENT UNDER CARE ACTIVITY FOR ESTIMATED NUTRITIONAL NEEDS. 1. CONTINUE [id number] DIET TOLERATED 2. RECOMMEND HAILEY BID FOR WOUND SUPPORT - PROVIDES 160 KCAL AND 5 GM PROTEIN DAILY 3. PROVIDED NUTRITION EDUCATION WITH HANDOUTS FOR DM 4. RD TO FOLLOW-UP 7 DAYS, LOW RISK REVIEWED BY LYDIA HODGES RD
--- NOTE | 2023-01-18 18:35 | NUR ---
[facility] CALLED, STATED PATIENT IS GOING TO [facility] AND APPROVAL OF TRANSFER IS PENDING AT THIS TIME. sHORT REPORT PROVIDED 5REQUESTED
--- NOTE | 2023-01-18 19:30 | NUR ---
RECEIVED REPORT FROM DAY SHIFT NURSE SUE FOR CONTINUITY OF CARE. PATIENT IS A&O X4. PATIENT IS ON ROOM AIR; BREATHING IS NORMAL WITH SYMMETRICAL RISE AND FALL OF CHEST. IV IS A 20G IN THE RAC, RUNNING NS 100. PATIENT IS SITTING HIGH-FOWLERS POSITION IN BED, WATCHING TV ON HIS PHONE. BED IS IN LOWEST POSITION, WHEELS LOCKED, CALL LIGHT IN PLACE. WILL CONTINUE TO OBSERVE PATIENT.
[2023-01-18] MEDS: INSULIN LISPRO SLIDING SCALE 100 UNITS/ML VIAL SUBQ PRN (21:59)
[2023-01-18] MEDS ORDERED: SEMA0.25 SQ (22:42)
[2023-01-18] MEDS ORDERED: BLOO-224 INH (22:43)
--- NOTE | 2023-01-18 23:48 | NUR ---
PICC LINE NURSE TESHA CALLED AND ASKED IF PATIENT WAS ALERT AND ORIENTED. I INFORMED HIM THE PATIENT WAS. HE ASKED ME TO CHECK WITH THE PATIENT TO FIND OUT IF HE WANTED THE PICC LINE INSERTED TONIGHT OR TOMORROW MORNING. PATIENT STATED HE WANTED PICC LINE INSERTED IN THE MORNING. I INFORMED PICC LINE NURSE AND HE SAID HE WOULD INSERT IT IN THE MORNING. RADIOLOGY ALSO CALLED AND INQUIRED ABOUT CT SCAN PUT IN BY DR. MARIA THAT STATED W/WO CONTRAST. I INFORMED RADIOLOGY THAT UNDER SPECIAL INSTRUCTIONS STATED W/O CONTRAST. RADIOLOGY ASKED ME IF THIS NEEDED TO BE DONE STAT OR CAN IT BE DONE IN THE MORNING. I INFORMED THEM THAT IT DIDN'T NEED TO BE DONE STAT, BUT PATIENT WAS HAVING A PICC LINE PLACED IN THE MORNING. RADIOLOGY SAID THAT'S FINE AND ASKED ME TO CANCEL THE CURRENT ORDER THAT SAID W/WO AND PUT A NEW ORDER IN STATING JUST W/O AND TO PUT THE TIME FOR TOMORROW AT 0700. THE CURRENT ORDER WAS CANCELED AND THE NEW ORDER WAS PLACED.
[2023-01-19] VITALS: BP 129/85
--- NOTE | 2023-01-19 03:45 | NUR ---
ASSESSED PATIENT'S LEFT FOOT WITH TANVI WEBBER. DIABETIC ULCER IS STILL BANDAGED WITH DRESSING, AND DRESSING IS DRY AND INTACT. DRESSING WAS APPLIED DURING DAY SHIFT, AND NO DRESSING CHANGE IS CURRENTLY REQUIRED. PATIENT HAS BEEN SLEEPING THROUGHOUT THE NIGHT. WILL CONTINUE TO OBSERVE PATIENT.
[2023-01-19 04:00] VITALS: BP 152/97
[2023-01-19] MEDS: NACL 0.9% 1,000 ML IV SCH ×2 (04:32→14:15)
[2023-01-19] MEDS: PIPERACILLIN/TAZOBACTAM 3.375 GM in DEXTROSE 5% 50 ML IV SCH (05:19)
[2023-01-19] MEDS: BLOOD GLUCOSE MONITORING 1 DEV DEV FS SCH ×4 (06:36→20:52)
[2023-01-19] MEDS: INSULIN LISPRO SLIDING SCALE 100 UNITS/ML VIAL SUBQ PRN ×2 (06:38→20:58)
--- NOTE | 2023-01-19 07:26 | NUR ---
ENDORSED TO DAY SHIFT NURSE SUE FOR CONTINUITY OF CARE. PATIENT IS STABLE.
[2023-01-19] MEDS: lisinopriL 20 MG TAB PO SCH (09:00)
--- NOTE | 2023-01-19 11:02 | NUR ---
0800-rECEIVED AWAKE, IN NO ACUTE DISTRESS, SAFETY MEASURES IN PLACE. BP VSS CAT SCAN OF LOWER EXTREMITY DONE
--- NOTE | 2023-01-19 11:04 | NUR ---
PICC LINE PLACEMENT DONE, XRAY ORDERED RTO CHECK PLACEMENT
[2023-01-19 11:17] VITALS: BP 146/92
--- NOTE | 2023-01-19 15:07 | NUR ---
DC PLANNING PER DR MARIA PATIENT NEEDS ROCEPHIN 2GM IV ABX DAILY FOR 6 WEEKS FAXED TO [facility]. PATIENT HAS PICC LINE. [facility] CALLED SPOKE WITH LISSETH DISCUSSED THE DC PLAN HOME WITH HOME HEALTH FOR IV ABX. PER LISSETH WILL FOLLOW UP TOMORROW CM PROVIDE THE UNIT NUMBER. [facility] PHONE # [phone]. CM TO FOLLOW
[2023-01-19] MEDS: cefTRIAXone 2,000 MG in DEXTROSE 5% 100 ML IV SCH ×2 (15:44→15:54)
[2023-01-19 16:00] VITALS: BP 152/94
[2023-01-19 20:00] VITALS: BP 145/85
--- NOTE | 2023-01-19 20:00 | NUR ---
PT IS AWAKE,A&O.RESP.UNLABORED.HR IS SR.IVF OF NS AT 100ML/H [facility]. CALL LIGHT IN REACH.WILL CONT.MONITORING.
[2023-01-19] MEDS ORDERED: ATORVASTATIN 20 MG TAB PO SCH (21:00)
[2023-01-20] VITALS: BP 132/82
--- NOTE | 2023-01-20 | NUR ---
SLEEPING.NO DISTRESS NOTED.HR IS SR.
[2023-01-20 04:00] VITALS: BP 131/94
--- NOTE | 2023-01-20 04:37 | NUR ---
SLEEPING. NO DISTRESS NOTED.HR IS SR.
[2023-01-20] MEDS: NACL 0.9% 1,000 ML IV SCH ×2 (05:15→09:42)
[2023-01-20] MEDS: BLOOD GLUCOSE MONITORING 1 DEV DEV FS SCH ×2 (05:20→11:33)
[2023-01-20] MEDS: INSULIN LISPRO SLIDING SCALE 100 UNITS/ML VIAL SUBQ PRN ×2 (06:23→11:45)
--- NOTE | 2023-01-20 07:16 | NUR ---
REPORT GIVEN TO BRAN RN.PT'S CONDITION IS STABLE.
[2023-01-20 08:00] VITALS: BP 139/94
[2023-01-20] MEDS: lisinopriL 20 MG TAB PO SCH (09:15)
--- NOTE | 2023-01-20 09:40 | NUR ---
[facility] NOTE: KIZZY WILL HAVE HIS COMPANY DELIVER ANTIBIOTICS BETWEEN 12 AND 10PM TODAY AND HE WILL COORDINATE WITH PATIENT ON DISCHARGE TIME. HE IS REQUESTING TODAY'S ROCEPHIN DOSE WILL BE GIVEN PRIOR TO DISCHARGE.
[2023-01-20] MEDS ORDERED: COMMUNICATION ORDER MC PRN (11:25)
[2023-01-20] MEDS: cefTRIAXone 2,000 MG in DEXTROSE 5% 100 ML IV SCH (11:46)
--- NOTE | 2023-01-20 11:58 | NUR ---
KIZZY WITH [facility] UPDATE WITH TIME OF ROCEPHIN DOSE GIVEN. WILL HAVE TEAM DELIVER ANTIBIOTIC AND RESUME NEXT DOSE PER SCHEDULE.
[2023-01-20 12:00] VITALS: BP 137/91
[2023-01-20] MEDS ORDERED: [UNRECOGNIZED DRUG - CODE] IV (13:12)
--- NOTE | 2023-01-20 14:10 | NUR ---
PATIENT REFUSES DISCHARGE PHOTOS OF FEET.
--- NOTE | 2023-01-20 14:20 | NUR ---
RN SPOKE Tre AT [facility], CONFIRMED DELIVERY OF IV ABX TO THE PATIENTS HOME TONIGHT BETWEEN 1999 AND 2200. [facility] WILL SEND A NURSE TO THE PATIENTS HOME TOMORROW AROUND 1600 TO ADMINISTER THE ROCEPHIN VIA PICC. Tre PHONE NUMBER IS [phone], PHONE NUMBER FOR [facility] IS [phone].
== END 2023-01-20 14:52 | disposition home health service (06) | DRG 344 ==
LOC: MED 17:21 → MTU 22:16
PROVIDERS: ADMIT Hospitalist; ATTEND Hospitalist
PROC: 05HY33Z Insertion of Infusion Device into Upper Vein, Percutaneous Approach (ICD-10-PCS; principal; 2023-01-19)
DX: E11.621 Type 2 diabetes mellitus with foot ulcer (principal); M86.8X7 Other osteomyelitis, ankle and foot; N17.9 Acute kidney failure, unspecified; L03.116 Cellulitis of left lower limb; E11.22 Type 2 diabetes mellitus with diabetic chronic kidney disease; R65.10 Systemic inflammatory response syndrome (SIRS) of non-infectious origin without acute organ dysfunction; L97.529 Non-pressure chronic ulcer of other part of left foot with unspecified severity; E11.51 Type 2 diabetes mellitus with diabetic peripheral angiopathy without gangrene; E11.40 Type 2 diabetes mellitus with diabetic neuropathy, unspecified; E11.69 Type 2 diabetes mellitus with other specified complication; Z68.42 Body mass index [BMI] 45.0-49.9, adult; E78.5 Hyperlipidemia, unspecified; E66.01 Morbid (severe) obesity due to excess calories; I12.9 Hypertensive chronic kidney disease with stage 1 through stage 4 chronic kidney disease, or unspecified chronic kidney disease; N18.30 Chronic kidney disease, stage 3 unspecified; Z20.822 Contact with and (suspected) exposure to COVID-19; Z89.429 Acquired absence of other toe(s), unspecified side
CPT/HCPCS: 36415; 71045; 73630; 73700; 80053; 82948; 83605; 83735; 83880; 84484; 85025; 87040; 87070; 87081; 93005; 96365; 96367; 99285; J0696; J1815; J2543; J3370; J7060; Q0092